=== PATIENT | female | born 1980 | race Two or more races ===

== ENCOUNTER 2024-03-02 23:15 | Inpatient (IN) | payer OTHER ==
[~2024-03-02] VITALS: Ht 162.6 cm; Wt 67.3 kg
[2024-03-03] VITALS (8 sets, daily range): BP systolic 126–132; BP diastolic 77–90; PULSE 91–110; RESP 14–20; TEMP 98–98.7; O2SAT 93–100
[2024-03-03 00:15] LABS: Urine Bacteria MANY /hpf (None Seen); Urine Blood 2+ /uL (Negative); Urine Clarity Turbid (Clear); Urine Color Yellow (Yellow); Urine Mucus FEW (None Seen); Urine Protein, UAD 1+ (Negative); Urine Specific Gravity 1.037 (1.001-1.035); Urine Urobilinogen 3 mg/dL (Negative); Urine WBC 23 /hpf (0 - 5)
[2024-03-03 00:17] LABS: Basophils # (auto) 0.1 10 ^3/uL (0-0.2); Basophils % (auto) 0.7 % (0.0-2.0); Eosinophils # (auto) 0.3 10 ^3/uL (0-0.8); Hemoglobin 14.2 g/dL (12.2-16.2); Lymphocytes # (auto) 2.4 10 ^3/uL (0.4-5.4); Lymphocytes % (auto) 24.7 % (10.0-50.0); Mean Corpuscular Hemoglobin 32.3 pg (28.0-32.0); Mean Corpuscular Hgb Conc. 34.6 g/dL (32.0-36.0); Mean Corpuscular Volume 93.5 fL (80.0-100.0); Monocytes # (auto) 1.1 10 ^3/uL (0-1.3); Neutrophils # (auto) 5.8 10 ^3/uL (1.6-8.6); Neutrophils % (auto) 60.6 % (37.0-80.0); Nucleated Red Blood Cells % 0.3 %; Platelet Count (auto) 273 10^3/uL (140-450); Red Blood Cells 4.38 10^6/uL (4.0-5.20); Red Cell Distribution Width 13.7 % (11.8-14.3); White Blood Cell 9.6 10^3/uL (4.4-10.8)
[2024-03-03 00:32] LABS: Alanine Aminotransferase 145 U/L (7-40); Albumin 4.4 g/dL (3.2-4.8); Alkaline Phosphatase 98 U/L (46-116); Anion Gap 5 (5-15); Aspartate Aminotransferase 98 U/L (13-40); BUN/Creatinine Ratio 14.6 (10.0-20.0); Blood Urea Nitrogen 15 mg/dL (9-23); Calcium 9.9 mg/dL (8.7-10.4); Carbon Dioxide 27 mmol/L (20-31); Chloride 103 mmol/L (98-107); Glucose 105 mg/dL (74-106); Sodium 135 mmol/L (136-145)
[2024-03-03 00:33] LABS: Bilirubin, Total 0.7 mg/dL (0.2-1.0); Total Protein 7.5 g/dL (5.7-8.2)
[2024-03-03] MEDS: MORPHINE SULFATE 4 MG/ML SYR/VIAL IV ONE ×2 (02:15→03:56)
[2024-03-03] MEDS: FAMOTIDINE (10MG/ML) 2ML VL IV ONE (02:17)
[2024-03-03] MEDS: ONDANSETRON HCL 4 MG/2 ML VIAL IV ONE (02:17)
[2024-03-03] MEDS: SODIUM CHLORIDE 0.9% 1,000 ML IV ONE (02:17)
[2024-03-03] MEDS: metroNIDAZOLE 500MG/100ML 100 ML IV ONE (02:27)
[2024-03-03] MEDS: ceFAZolin 2 GM/D5W50ml 50 ML IV ONE (03:12)
[2024-03-03] MEDS ORDERED: ONDANSETRON HCL 4 MG/2 ML VIAL IV PRN (05:30)
[2024-03-03] MEDS ORDERED: diphenhdrAMINE HCL 50 MG/1 ML VL IV PRN (05:30)
[2024-03-03] MEDS ORDERED: NITROGLYCERIN 0.4 MG SL TAB SL PRN (05:30)
[2024-03-03] MEDS ORDERED: hydrALAZINE HCL 20 MG/ML VL IV PRN (05:30)
[2024-03-03] MEDS ORDERED: MORPHINE SULFATE INJ 2 MG/ml SYRG IV PRN (05:30)
[2024-03-03] MEDS: LACTATED RINGER'S 1,000 ML IV SCH (05:59)
[2024-03-03] MEDS: MORPHINE SULFATE INJ 2 MG/ml SYRG IV PRN (07:06)
[2024-03-03] MEDS ORDERED: METH-1214 PO (10:17)
[2024-03-03] MEDS: METHADONE HCL 10 MG TAB PO SCH (10:34)
[2024-03-03] MEDS: PANTOPRAZOLE 40 MG/10 ML VIAL INJ IV SCH (10:34)
[2024-03-03] MEDS ORDERED: MEPERIDINE HCL (50 MG/ML) 1 ML VIAL ONE (12:46)
[2024-03-03] MEDS ORDERED: fentaNYL CITRATE 100 MCG/2 ML VL ONE (12:46)
[2024-03-03] MEDS ORDERED: PROPOFOL 10 MG/ML 20 ML IV ONE (12:47)
[2024-03-03 15:28] LABS: INR 1.08 (0.9-1.15); Partial Thromboplastin Time 31.3 SEC (24.5-34.5); Prothrombin Time 11.4 sec (9.3-11.8)
[2024-03-03] MEDS ORDERED: ePHEDrine SULFATE 50 MG/ML AMP ONE (18:43)
[2024-03-03] MEDS ORDERED: PHENYLEPHRINE HCL 10 MG/ML VL ONE (18:52)
[2024-03-03] MEDS ORDERED: DexAMETHasone SOD PHOS 10MG/1ML VIAL INJ ONE (18:58)
[2024-03-03] MEDS ORDERED: ONDANSETRON HCL 4 MG/2 ML VIAL ONE (18:58)
[2024-03-03] MEDS ORDERED: MEPERIDINE HCL (25 MG/ML) 1ML VIAL ONE (19:45)
[2024-03-03] MEDS: LIDOCAINE W/ EPINEPHRINE 1% 20ML VIAL ONE (20:00)
[2024-03-03] MEDS ORDERED: SUGAMMADEX 200mg/2ml Vial (100MG/ML) IV ONE (20:00)
[2024-03-03] MEDS ORDERED: MEPERIDINE HCL (25 MG/ML) 1ML VIAL IV PRN (20:15)
[2024-03-03] MEDS ORDERED: ACETAMINOPHEN IV 1000 MG/100ML (10MG/ML) IV PRN (20:15)
[2024-03-03] MEDS ORDERED: HYDROmorphone HCL 2 MG/ML VL/or syr IV PRN (20:15)
[2024-03-03] MEDS: HYDROmorphone HCL 2 MG/ML VL/or syr IV ONE (20:47)
[2024-03-04] VITALS (7 sets, daily range): BP systolic 105–122; BP diastolic 59–83; PULSE 87–99; RESP 14–18; TEMP 97.9–98.8; O2SAT 93–100
[2024-03-04] MEDS: HYDROmorphone HCL 2 MG/ML VL/or syr IV PRN (00:28)
[2024-03-04] MEDS: INFLUENZA TRIVALENT 2024-2025 0.5 ML INJ IM ONE (06:28)
[2024-03-04 07:09] LABS: Alanine Aminotransferase 84 U/L (7-40); Alkaline Phosphatase 90 U/L (46-116); Anion Gap 8 (5-15); BUN/Creatinine Ratio 12.1 (10.0-20.0); Blood Urea Nitrogen 8 mg/dL (9-23); Calcium 9.2 mg/dL (8.7-10.4); Carbon Dioxide 22 mmol/L (20-31); Chloride 105 mmol/L (98-107); Glucose 122 mg/dL (74-106); Potassium 4.2 mmol/L (3.5-5.1); Sodium 135 mmol/L (136-145)
[2024-03-04 07:10] LABS: Albumin 3.6 g/dL (3.2-4.8)
[2024-03-04 07:11] LABS: Aspartate Aminotransferase 46 U/L (13-40); Bilirubin, Total 0.5 mg/dL (0.2-1.0); Total Protein 6.3 g/dL (5.7-8.2)
[2024-03-04 07:13] LABS: Basophils # (auto) 0 10 ^3/uL (0-0.2); Basophils % (auto) 0.2 % (0.0-2.0); Eosinophils # (auto) 0 10 ^3/uL (0-0.8); Hematocrit 34.6 % (36.0-46.0); Hemoglobin 11.9 g/dL (12.2-16.2); Lymphocytes # (auto) 0.6 10 ^3/uL (0.4-5.4); Mean Corpuscular Hemoglobin 32.7 pg (28.0-32.0); Mean Corpuscular Hgb Conc. 34.4 g/dL (32.0-36.0); Mean Corpuscular Volume 95.1 fL (80.0-100.0); Monocytes # (auto) 0.5 10 ^3/uL (0-1.3); Monocytes % (auto) 6.7 % (0.0-12.0); Neutrophils # (auto) 6.4 10 ^3/uL (1.6-8.6); Neutrophils % (auto) 85.1 % (37.0-80.0); Platelet Count (auto) 217 10^3/uL (140-450); Red Blood Cells 3.64 10^6/uL (4.0-5.20); Red Cell Distribution Width 13.6 % (11.8-14.3); White Blood Cell 7.5 10^3/uL (4.4-10.8)
[2024-03-04] MEDS: SUCCINYLCHOLINE CHLORIDE 20 MG/ML 10ML VIAL IV ONE (07:49)
[2024-03-04] MEDS: CLINDAMYCIN 600MG IV 50 ML IV ONE (07:49)
[2024-03-04] MEDS: ONDANSETRON HCL 4 MG/2 ML VIAL IV ONE (07:50)
[2024-03-04] MEDS: CEFEPIME 1GM/ 50ML 0 ML IV ONE (07:50)
[2024-03-04] MEDS ORDERED: HYDR-4902 PO (15:28)
[2024-03-04] MEDS: PNEUMOCOCCAL VACC POLYS 25 MCG/0.5 ML VIAL IM ONE (17:06)
== END 2024-03-04 17:50 | disposition home or self-care (01) | DRG 263 ==
LOC: ER 23:15 → OVERFLOW 03-03 05:35 → WEST WING 03-03 09:00
PROVIDERS: ADMIT Nurse Practitioner; ATTEND Nurse Practitioner
PROC: 0FT44ZZ Resection of Gallbladder, Percutaneous Endoscopic Approach (ICD-10-PCS; principal; 2024-03-03 18:22)
DX: K81.0 Acute cholecystitis (principal); R71.0 Precipitous drop in hematocrit; F11.20 Opioid dependence, uncomplicated; F31.9 Bipolar disorder, unspecified; F17.290 Nicotine dependence, other tobacco product, uncomplicated; F17.210 Nicotine dependence, cigarettes, uncomplicated; R74.8 Abnormal levels of other serum enzymes; Z98.891 History of uterine scar from previous surgery; Z83.3 Family history of diabetes mellitus
CPT/HCPCS: 36415; 71045; 76705; 80053; 81001; 81025; 83690; 84702; 85025; 85610; 85730; 86850; 86900; 86901; 90656; 99291; G0378; J0131; J0330; J1100; J2405; J2470; J2704; J3490